=== PATIENT | female | born 1995 | race Caucasian/White ===

== ENCOUNTER 2017-05-13 12:09 | Emergency (ER) ==
[2017-05-13 12:14] VITALS: BP 140/87; TEMP 100.5; BMI 31.8
--- NOTE | 2017-05-13 12:32 | ED.PDOC ---
General ED Provider: Dr. MARVEL BELTRAN Chief Complaint: Non-specific Complaint Stated Complaint: Pain R breast and R chest with breathing; red streaks on breast Time Seen by Physician: 12:20 Mode of Arrival: Walk-In Information Source: Patient Exam Limitations: No limitations (patient tearful) [facility] and T[facility] Documentation Reviewed and Agree: Yes Review of Systems - Review Of Systems Constitutional: Reports: No symptoms Skin: Reports: No symptoms, Change in color (R upper medial quadrant; erythematous streaks (2); increased tenderness) All Other Systems: Reviewed and Negative Past Medical History - Past Medical History Previously Healthy: Yes Endocrine: Reports: None Cardiovascular: Reports: None Respiratory: Reports: None Hematological: Reports: None Gastrointestinal: Reports: None Genitourinary: Reports: None Neuro/Psych: Reports: Depression Musculoskeletal: Reports: None Cancer: Reports: None Last Menstrual Period: 2 weeks ago - Surgical History General Surgical History: Reports: None - Family History Family History: Reports: Unknown - Social History Smoking Status: Current every day smoker Hx Substance Use: No Alcohol Screening: None - Immunizations Tetanus Shot up to Date: Yes Physical Exam - Physical Exam Appearance: Well-appearing Respiratory: Airway patent, Respirations nonlabored Musculoskeletal: Normal strength, ROM intact Skin: Warm, Dry, Normal color (Except R breast, upper right medial quadrant - two linear distribution erythematous streaks; tender to palpation medial aspect breast and chest wall) Neurological: Sensation intact, Motor intact Psychiatric: Affect appropriate Critical Care Note - Critical Care Note Total Time (mins): 15 Course - Course Hematology/Chemistry: 05/13/17 12:40 05/13/17 12:40 Orders, Labs, Meds: Lab Review 05/13/17 12:40 WBC 13.71 H RBC 4.23 Hgb 12.6 Hct 37.2 MCV 87.9 MCH 29.8 MCHC 33.9 RDW Coeff of Saurabh 13.4 Plt Count 222 Immature Gran % (Auto) 0.4 Neut % (Auto) 87.0 Lymph % (Auto) 6.2 L [place] % (Auto) 4.6 Eos % (Auto) 1.5 Baso % (Auto) 0.3 Immature Gran # (Auto) 0.1 Neut # 11.9 H Lymph # 0.9 [place] # 0.6 Eos # 0.2 Baso # 0.0 Sodium 137 Potassium 3.6 Chloride 106 Carbon Dioxide 22 Anion Gap 12.6 BUN 13 Creatinine 0.79 Estimated GFR (MDRD) 92.00 BUN/Creatinine Ratio 16.45 Glucose 120 H Calcium 9.1 Total Bilirubin 0.40 AST 21 ALT 13 Alkaline Phosphatase 60 Total Protein 6.8 Albumin 3.8 Globulin 3.0 Albumin/Globulin Ratio 1.27 Orders Category Date Time Status CBC W/ AUTO DIFF Stat LAB 05/13/17 12:40 Completed COMPREHENSIVE METABOLIC PANEL Stat LAB 05/13/17 12:40 Completed EHRLICHIA DNA, PCR Stat LAB 05/13/17 12:38 Ordered LYME, WESTERN BLOT, SERUM Stat LAB 05/13/17 12:40 Received [place] MTN SPOTTED FEVER,IgM Stat LAB 05/13/17 12:40 Received CHEST, 2 VIEWS PA & LAT Stat RADS 05/13/17 12:31 Completed Vital Signs: Temp Pulse Resp BP Pulse Ox 05/13/17 12:10 100.5 F H 101 H 20 140/87 98 Departure - Departure Time of Disposition: 14:15 Disposition: HOME SELF-CARE Discharge Problem: Cellulitis of right breast Instructions: Cellulitis (ED) Condition: Stable Pt referred to PMD for follow-up: Yes (Call for appointment) Additional Instructions: Take antibiotic as prescribed; also use pain medication as needed. Follow up with primary care; call for appointment. Prescriptions: Cephalexin [Keflex] 500 mg PO Q6HR #30 capsule Tramadol HCl [Ultram] 50 mg PO Q4H #10 tablet Allergies/Adverse Reactions: Allergies acetaminophen [From Percocet] Adverse Reaction (Verified 05/13/17 12:15) hydrocodone Adverse Reaction (Verified 05/13/17 12:15) morphine Adverse Reaction (Verified 05/13/17 12:15) oxycodone [From Percocet] Adverse Reaction (Verified 05/13/17 12:15) Penicillins Adverse Reaction (Verified 05/13/17 12:15) Home Medications: Ambulatory Orders Escitalopram Oxalate [Lexapro] 20 mg PO BEDTIME 12/02/15 Clonazepam [Klonopin] 0.5 mg PO TID #90 09/10/16 Dextroamphetamine/Amphetamine [Adderall 30 Mg Tablet] 30 mg PO BID #60 Escitalopram Oxalate [Lexapro] 20 mg PO BEDTIME #30 09/10/16 Cephalexin [Keflex] 500 mg PO Q6HR #30 capsule 05/13/17 Tramadol HCl [Ultram] 50 mg PO Q4H #10 tablet 05/13/17 Disposition Discussed With: Patient
[2017-05-13 12:52] LABS: BASOPHILS % (AUTO) 0.3 % (0.0-3.0); EOSINOPHILS # (AUTO) 0.2 K/ul (0.0-0.7); EOSINOPHILS % (AUTO) 1.5 % (0.0-7.0); HEMATOCRIT 37.2 % (37.0-47.0); HEMOGLOBIN 12.6 g/dl (12.0-16.0); IMMATURE GRANULOCYTE % (AUTO) 0.4 % (0.0-5.0); LYMPHOCYTES # (AUTO) 0.9 K/uL (0.60-3.4); LYMPHOCYTES % (AUTO) 6.2 (10.0-50.0); MEAN CORPUSCULAR HEMOGLOBIN 29.8 pg (27.0-31.0); MEAN CORPUSCULAR HGB CONC 33.9 (31.8-35.4); MEAN CORPUSCULAR VOLUME 87.9 fl (81.0-99.0); MONOCYTES # (AUTO) 0.6 K/uL (0.4-2.0); MONOCYTES % (AUTO) 4.6 (0-10); NEUTROPHILS # (AUTO) 11.9 K/ul (2.0-6.9); PLATELET COUNT 222 10^3/uL (140-440); RED BLOOD COUNT 4.23 10^6/ul (4.20-5.40); WHITE BLOOD COUNT 13.71 K/ul (4.6-10.2)
--- NOTE | 2017-05-13 12:56 | DI ---
EXAM: CHEST FRONTAL AND LATERAL VIEWS HISTORY: Chest pain. COMPARISON: 12/23/2015 FINDINGS: Heart size and mediastinal contour remain within normal limits. No acute infiltrates. Normal vascularity with no pleural fluid or pneumothorax. The bony thorax has no acute finding. IMPRESSION: No acute process.
[2017-05-13 13:10] LABS: ALBUMIN 3.8 g/dL (3.4-5.0); ALBUMIN/GLOBULIN RATIO 1.27; ANION GAP 12.6; BILIRUBIN,TOTAL 0.4 mg/dL (0.00-1.20); BUN/CREATININE RATIO 16.45; CALCIUM 9.1 mg/dL (8.2-10.2); CREATININE 0.79 mg/dL (0.60-1.30); POTASSIUM 3.6 mmol/L (3.5-5.10); TOTAL PROTEIN 6.8 g/dL (6.4-8.2)
[2017-05-17 13:10] LABS: IGG P18 AB Absent (.); IGG P23 AB Absent (.); IGG P28 AB Absent (.); IGG P30 AB Absent (.); IGG P39 AB Absent (.); IGG P41 AB Present (.); IGG P45 AB Absent (.); IGG P58 AB Absent (.); IGG P66 AB Present (.); IGG P93 AB Absent (.); IGM P39 AB Absent (.); IGM P41 AB Absent (.)
[2017-05-19 07:15] LABS: LYME IGG WB INTERP Negative (.); LYME IGM WB INTERP Negative (.)
== END 2017-05-13 14:25 | disposition home or self-care (01) ==
LOC: ED 12:09
DX: N61.0 Mastitis without abscess (principal); F17.210 Nicotine dependence, cigarettes, uncomplicated
CPT/HCPCS: 36415; 80053; 85025; 86617; 86757; 87798; 99283

== ENCOUNTER 2017-09-02 11:17 | Emergency (ER) ==
[2017-09-02] MEDS ORDERED: LIDOCAINE HCL 1% SDV SUBCUT STA (11:19)
[2017-09-02 11:21] VITALS: BP 130/87; TEMP 96.5; BMI 29.2
--- NOTE | 2017-09-02 11:50 | ED.PDOC ---
General ED Provider: Dr. JEREMY CLEMENTE JR Chief Complaint: Hand Laceration Stated Complaint: CUTTING A ZIPTIE WITH KNIFE OVER CORRECTED AND CUT THE BASE OF LEFT THUMB]96.5 98 20 130/87 5/10LEFT HAND LACERATION Time Seen by Physician: 11:49 Mode of Arrival: Walk-In Information Source: Patient Exam Limitations: No limitations [facility] and Triage Documentation Reviewed and Agree: No Review of Systems - Review Of Systems Constitutional: Reports: No symptoms Eyes: Reports: No symptoms Ears, Nose, Mouth, Throat: Reports: No symptoms Respiratory: Reports: No symptoms Cardiac: Reports: No symptoms GI: Reports: No symptoms : Reports: No symptoms Musculoskeletal: Reports: No symptoms Skin: Reports: Lesions (note 15mm lac also note several abrasions(from my dog) and healed lac index finger(from cart at [employer])) Neurological: Reports: No symptoms Endocrine: Reports: No symptoms All Other Systems: Other Past Medical History - Past Medical History Previously Healthy: Yes Endocrine: Reports: None Cardiovascular: Reports: None Respiratory: Reports: None Hematological: Reports: None Gastrointestinal: Reports: None Genitourinary: Reports: None Neuro/Psych: Reports: Depression Musculoskeletal: Reports: None Cancer: Reports: None Last Menstrual Period: 08/15/17 - Surgical History General Surgical History: Reports: Cholecystectomy - Family History Family History: Reports: Unknown - Social History Smoking Status: Current every day smoker, Heavy tobacco smoker Hx Substance Use: No Alcohol Screening: None - Immunizations Tetanus Shot up to Date: Yes Physical Exam - Physical Exam Appearance: Well-appearing Pain Distress: Mild Musculoskeletal: Normal strength, ROM intact, No edema, No calf tenderness Skin: Warm, Dry, Normal color (note laceration and abrasions) Critical Care Note - Critical Care Note Total Time (mins): 0 Course - Course Orders, Labs, Meds: Orders Category Date Time Status Lidocaine HCl/Pf [Lidocaine HCl 1% Sdv] MEDS 09/02/17 11:19 Discontinued 5 ml SUBCUT ONCE STA Medications Discontinued Medications Generic Name Dose Route Start Last Admin Trade Name Freq PRN Reason Stop Dose Admin Lidocaine HCl 5 ml 09/02/17 11:19 Lidocaine Hcl 1% Sdv SUBCUT 09/02/17 11:20 ONCE STA Vital Signs: Temp Pulse Resp BP Pulse Ox 09/02/17 11:17 96.5 F L 98 H 20 130/87 98 Departure - Departure Time of Disposition: 12:05 Disposition: HOME SELF-CARE Discharge Problem: Laceration of hand Instructions: Laceration (ED), Care For Your Stitches (ED) Condition: Good Pt referred to PMD for follow-up: Yes Additional Instructions: clean and dry for three days sutures out in one week return if red swollen tender or draining replace bandage daily and if soaks through if soaks three times in a day return for recheck Allergies/Adverse Reactions: Allergies acetaminophen [From Percocet] Adverse Reaction (Verified 09/02/17 11:21) hydrocodone Adverse Reaction (Verified 09/02/17 11:21) morphine Adverse Reaction (Verified 09/02/17 11:21) oxycodone [From Percocet] Adverse Reaction (Verified 09/02/17 11:21) Penicillins Adverse Reaction (Verified 09/02/17 11:21) Home Medications: Ambulatory Orders Escitalopram Oxalate [Lexapro] 20 mg PO BEDTIME 12/02/15 Clonazepam [Klonopin] 0.5 mg PO TID #90 09/10/16 Dextroamphetamine/Amphetamine [Adderall 30 Mg Tablet] 30 mg PO BID #60 09/10/16
== END 2017-09-02 12:30 | disposition home or self-care (01) ==
LOC: ED 11:17
DX: S61.012A Laceration without foreign body of left thumb without damage to nail, initial encounter (principal); W26.0XXA Contact with knife, initial encounter; F17.210 Nicotine dependence, cigarettes, uncomplicated
CPT/HCPCS: 96372; 99283

== ENCOUNTER 2018-12-27 18:49 | Emergency (ER) ==
[2018-12-27 18:54] VITALS: BP 117/77; TEMP 98.6; BMI 39.9
--- NOTE | 2018-12-27 19:13 | ED.PDOC ---
General ED Provider: Dr. RICH REYES MD Chief Complaint: Sore Throat Stated Complaint: tonsilitis Time Seen by Physician: 19:00 Mode of Arrival: Walk-In Information Source: Patient Exam Limitations: No limitations Primary Care Provider: AD BROWN Nursing and Triage Documentation Reviewed and Agree: Yes Does patient meet sepsis criteria?: No If yes, has appropriate treatment been initiated?: Yes System Inflammatory Response Syndrome: Pulse >90 BPM Sepsis Protocol: For patient's 13 years and over: Temp is 96.8 and below OR 101 and greater Pulse >90 BPM Resp >20/minute Acutely Altered Mental Status Are patient's symptoms suggestive of a new infection, such as: -Pneumonia -Skin, Soft Tissue -Endocarditis -UTI -Bone, Joint Infection -Implantable Device -Acute Abdominal Infection -Wound Infection -Meningitis -Blood Stream Catheter Infection -Unknown Review of Systems - Review Of Systems Constitutional: Reports: Chills Eyes: Reports: No symptoms Ears, Nose, Mouth, Throat: Reports: Throat pain, Throat swelling Respiratory: Reports: No symptoms Cardiac: Reports: No symptoms GI: Reports: No symptoms : Reports: No symptoms Musculoskeletal: Reports: No symptoms Skin: Reports: No symptoms Neurological: Reports: No symptoms Endocrine: Reports: No symptoms Hematologic/Lymphatic: Reports: No symptoms All Other Systems: Reviewed and Negative Past Medical History - Past Medical History Previously Healthy: Yes Endocrine: Reports: None Cardiovascular: Reports: None Respiratory: Reports: None Hematological: Reports: None Gastrointestinal: Reports: None Genitourinary: Reports: None Neuro/Psych: Reports: Depression Musculoskeletal: Reports: None Cancer: Reports: None Last Menstrual Period: 2 weeks - Surgical History General Surgical History: Reports: Cholecystectomy - Family History Family History: Reports: Unknown - Social History Smoking Status: Current every day smoker, Heavy tobacco smoker Hx Substance Use: No Alcohol Screening: Occasionally - Immunizations Tetanus Shot up to Date: Yes Physical Exam - Physical Exam Appearance: Ill-appearing, Obese Ill-appearing: Mild Eyes: OMID, EOMI, Conjunctiva clear ENT: Erythema, Exudate Neck: Supple Respiratory: Airway patent, Breath sounds clear, Breath sounds equal, Respirations nonlabored Cardiovascular: RRR GI/: Soft, Nontender, No masses, Bowel sounds normal, No Organomegaly Musculoskeletal: Normal strength, ROM intact, No edema, No calf tenderness Skin: Warm, Dry, Normal color Neurological: Sensation intact, Motor intact, Reflexes intact, Cranial nerves intact, Alert, Oriented Psychiatric: Anxious Critical Care Note - Critical Care Note Total Time (mins): 0 Course - Course Vital Signs: Temp Pulse Resp BP Pulse Ox 12/27/18 18:49 98.6 F 126 H 18 117/77 98 Departure - Departure Time of Disposition: 21:15 Disposition: HOME SELF-CARE Discharge Problem: Acute bacterial tonsillitis Instructions: Pharyngitis (ED) Condition: Good Pt referred to PMD for follow-up: Yes IPMP verified?: No Prescriptions: Sulfamethoxazole/Trimethoprim [Bactrim Ds 800/160 mg] 1 tab PO Q12HR 7 Days #14 tablet NS Prednisone 20 mg PO DAILYWM 5 Days #5 tablet NS Allergies/Adverse Reactions: Allergies Penicillins Adverse Reaction (Verified 12/27/18 18:55) Home Medications: Ambulatory Orders Prednisone 20 mg PO DAILYWM 5 Days #5 tablet NS 12/27/18 Sulfamethoxazole/Trimethoprim [Bactrim Ds 800/160 mg] 1 tab PO Q12HR 7 Days #14 tablet NS 12/27/18
[2018-12-27] MEDS: SOLU-MEDROL 125 MG IM STA (19:20)
[2018-12-27] MEDS: ROCEPHIN IM STA (19:20)
[2018-12-27] MEDS: LIDOCAINE HCL 1% SDV IM STA (19:20)
== END 2018-12-27 20:18 | disposition home or self-care (01) ==
LOC: ED 18:49
DX: J03.90 Acute tonsillitis, unspecified (principal); F17.210 Nicotine dependence, cigarettes, uncomplicated
CPT/HCPCS: 96372; 99282